=== PATIENT | female | born 1985 | race Caucasian/White ===

== ENCOUNTER 2018-11-16 14:17 | Emergency (ER) | payer SELFPAY ==
[~2018-11-16] VITALS: Ht 157.5 cm; Wt 77.1 kg
[~2018-11-16 14:17] MED LIST: ALBU90OI61 INH; AMOX500 PO; AZIT250 PO; BENZT TP; CEPH500 PO; CODGUAEL PO; DEXGUASY PO; DOXY100 PO; ERYT.5TO OS; HYDACE5 PO; IBUP600 PO; IBUP800 PO; LIDO2L PO; META800 PO; NAPR500 PO; ONDA4ODT MM; PRED20 PO; PSEU120ER PO
[2018-11-16] MEDS ORDERED: Vistaril50 MG PO (15:19)
== END 2018-11-16 15:28 | disposition home or self-care (01) ==
LOC: ER 14:17
DX: F41.0 Panic disorder [episodic paroxysmal anxiety] (principal); F17.210 Nicotine dependence, cigarettes, uncomplicated
CPT/HCPCS: 99282